=== PATIENT | female | born 1975 | race Caucasian/White ===

== ENCOUNTER 2016-04-29 22:29 | Emergency (ER) | payer OTHER ==
[2016-04-29 22:41] VITALS: BP 141/94; PULSE 76; TEMP 98.4; BMI 25.8
--- NOTE | 2016-04-30 | PDOC ---
History of Present Illness - History of Present Illness Initial Comments: 04/30/16 00:38 The patient is a 40 year old female, with no significant past medical history, who presents to the emergency department with cough, generalized body aches, and chills for about 5 days. The patient states she has had a persistent cough, productive of green sputum. The patient reports feeling "achy" and cold. She states her son is a patient in the ED tonight also, She denies chest pain, shortness of breath, headache and dizziness. She denies fever, chills, nausea, vomit, diarrhea and constipation. She denies dysuria, frequency, urgency and hematuria. Allergies: NKDA PCP - Dr. Ede Danielle <Renita Briceno - Last Filed: 04/30/16 00:38> <Paul Rich - Last Filed: 04/30/16 01:39> - General Chief Complaint: Cold Symptoms Stated Complaint: COLD SYMPTOMS Time Seen by Provider: 04/29/16 23:46 Past History <Renita Briceno - Last Filed: 04/30/16 00:38> - Past Medical History Psychiatric Problems: Yes (ANXIETY) Suicide Attempt (Hx): No (denies) - Immunization History Immunization Up to Date: (FLU 2011) - Psycho/Social/Smoking Cessation Hx Anxiety: Yes Suicidal Ideation: No Smoking Status: Yes Smoking History: Current every day smoker Have you smoked in the past 12 months: Yes Number of Cigarettes Smoked Daily: 5 Information on smoking cessation initiated: No 'Breaking Loose' booklet given: 02/15/15 Hx Alcohol Use: No Drug/Substance Use Hx: No Substance Use Type: None <Paul Rich - Last Filed: 04/30/16 01:39> - Past Medical History Allergies/Adverse Reactions: Allergies Allergy/AdvReac Type Severity Reaction Status Date / Time No Known Allergies Allergy Verified 04/29/16 22:38 Home Medications: Ambulatory Orders Oxycodone HCl/Acetaminophen [Percocet 5-325 mg Tablet] 1 - 2 tab PO Q4H Review of Systems - Review of Systems Able to Perform ROS?: Yes Comments:: 04/30/16 00:48 CONSTITUTIONAL: (+) chills. No fever, no fatigue EYES: No visual changes ENT: No ear pain, no sore throat CARDIOVASCULAR: No chest pain, no palpitations RESPIRATORY: (+) cough, No SOB GI: No abdominal pain, no nausea, no vomiting, no constipation, no diarrhea GENITOURINARY: No dysuria, no frequency, no hematuria MUSKULOSKELETAL: (+) generalized muscle aches. No backpain, no joint pain, no myalgias SKIN: No rash NEURO: No headache <Renita Briceno - Last Filed: 04/30/16 00:38> *Physical Exam - Vital Signs Last Vital Signs Temp Pulse Resp BP Pulse Ox 98.4 F 76 14 141/94 100 04/29/16 22:39 04/29/16 22:39 04/29/16 22:39 04/29/16 22:39 04/29/16 22:39 - Physical Exam Comments: 04/30/16 00:49 CONSTITUTIONAL: Well-appearing; well-nourished; in no apparent distress HEAD: Normocephalic; atraumatic EYES: PERRL; EOM intact ENMT: External appears normal; normal oropharynx NECK: Supple; non-tender; no cervical lymphadenopathy CARD: Normal S1, S2; no murmurs, rubs, or gallops RESP: Normal chest excursion with respiration; breath sounds clear and equal bilaterally; no wheezes, rhonchi, or rales ABD: Soft, non-distended; non-tender; no palpable organomegaly, no palpable hernias EXT: Normal ROM in all four extremities; non-tender to palpation; distal pulses intact SKIN: Warm, dry, no rash NEURO: No focal neurological deficiencies. <Renita Briceno - Last Filed: 04/30/16 00:38> - Vital Signs Last Vital Signs Temp Pulse Resp BP Pulse Ox 98.4 F 76 14 141/94 100 04/29/16 22:39 04/29/16 22:39 04/29/16 22:39 04/29/16 22:39 04/29/16 22:39 <Paul Rich - Last Filed: 04/30/16 01:39> Medical Decision Making - Medical Decision Making 04/30/16 01:37 Patient is a well-appearing 40-year-old female who presents with signs and symptoms of mild influenza-like illness. Patient's son was recently diagnosed with influenza. Patient is 5 days post onset of symptoms and there is no indication for Tamiflu at this time. Will discharge with instructions to aggressively hydrate and take NSAIDs as needed. <Paul Rich - Last Filed: 04/30/16 01:39> *DC/Admit/Observation/Transfer - Attestations Scribe Attestion: 04/30/16 00:49 Documentation prepared by Renita Briceno, acting as medical secretary teacher for Paul Rich MD <Renita Briceno - Last Filed: 04/30/16 00:38> - Attestations Physician Attestion: 04/30/16 01:37 The documentation was prepared by the scribe under my direct supervision. I have reviewed the documentation which correctly represents the findings, medical decision-making and critical action taken by me. <Paul Rich - Last Filed: 04/30/16 01:39> Diagnosis at time of Disposition: Influenza-like illness - Discharge Dispostion Disposition: HOME Condition at time of disposition: Stable - Referrals Referrals: Ede Danielle [Primary Care Provider] - - Patient Instructions Printed Discharge Instructions: DI for Influenza -- Adult
== END 2016-04-30 02:00 | disposition home or self-care (01) ==
LOC: JER 22:29
DX: J11.1 Influenza due to unidentified influenza virus with other respiratory manifestations (principal); F41.9 Anxiety disorder, unspecified; F17.210 Nicotine dependence, cigarettes, uncomplicated
CPT/HCPCS: 99281-25

== ENCOUNTER 2016-07-01 02:11 | Emergency (ER) | payer OTHER ==
[2016-07-01 02:27] VITALS: BMI 27.3
[2016-07-01] MEDS ORDERED: ONDANSETRON 4 MG/2 ML VIAL IVPB ONE (02:36)
[2016-07-01] MEDS ORDERED: SODIUM CHLORIDE 1,000 ML IV STA ×2 (02:36→04:36)
[2016-07-01] MEDS ORDERED: morphine CARPU-JECT 4 MG/1 ML DISP.SYRIN IVPUSH ONE ×2 (02:36→04:36)
--- NOTE | 2016-07-01 02:42 | PDOC ---
History of Present Illness - General Chief Complaint: Pain, Acute Stated Complaint: STOMACH PAIN Time Seen by Provider: 07/01/16 02:13 History Source: Patient Exam Limitations: No Limitations - History of Present Illness Travel History: No Initial Comments: 07/01/16 02:39 40yo Female patient presents to ED c/o sudden onset abd pain. Patient reports pain began couple hours ago. [place] RLQ radiating to her right flank. Denies hematuria. Patient report hx: Constipation. Last Bm: 2 days ago. Last meal: 30 mins. LNMP: June 23. Associated SOB per patient. Denies CP, fever, rectal bleeding, hematuria, hematemesis, or any other complaints at this time. Timing/Duration: reports: getting worse, changing over time Quality: reports: moderate Abdominal Pain Onset Location: reports: RLQ, epigastric Pain Radiation: reports: back Activities at Onset: reports: none Treatment Prior to Arrive: worse with: analgesics, antacids, cold pack, heat, laxative, enema, other Aggravating Factors: worse with: None, Defecation, Eating, Emotional upset, Exertion, [place], Movement, Voiding, Change in position Alleviating Factors: worse with: None, Belching, Shallow Breathing, Defecation, Eating, Holding Breath, Passing Gas, Change in Position, Rest, Voiding, Vomiting Past History - Travel Traveled outside of the country in the last 30 days: No Close contact w/someone who was outside of country & ill: No - Past Medical History Allergies/Adverse Reactions: Allergies Allergy/AdvReac Type Severity Reaction Status Date / Time No Known Allergies Allergy Verified 04/29/16 22:38 Home Medications: Ambulatory Orders Ondansetron [Zofran Odt -] 4 mg SL Q6H PRN #20 od.tablet 07/01/16 Psychiatric Problems: Yes (ANXIETY) Suicide Attempt (Hx): No (denies) - Immunization History Immunization Up to Date: (2011) - Psycho/Social/Smoking Cessation Hx Anxiety: Yes Suicidal Ideation: No Smoking Status: Yes Smoking History: Never smoked Have you smoked in the past 12 months: Yes Number of Cigarettes Smoked Daily: 5 Information on smoking cessation initiated: Yes 'Breaking Loose' booklet given: 07/01/16 Hx Alcohol Use: No Drug/Substance Use Hx: No Substance Use Type: None Abd/GI Specific PMHX - Complaint Specific PMHX Colitis: No Diverticulitis: No Gall Bladder Disease: No GERD: No Hepatitis: No Irritable Bowel Synd (IBS): No Pancreatitis: No GI Ulcer Disease: No Review of Systems - Review of Systems Able to Perform ROS?: Yes Is the patient limited Welsh proficient: No Constitutional: No: Chills, Fever Respiratory: No: Stridor, Wheezing Cardiac (ROS): No: Chest Pain ABD/GI: Yes: Constipated. No: Diarrhea, Nausea, Poor Appetite, Poor Fluid Intake, Rectal Bleeding, Vomiting, Indigestion, Abdominal cramping : Yes: Flank Pain. No: Burning, Dysuria, Frequency, Hematuria, Incontinence, Pain, Urgency Musculoskeletal: Yes: Back Pain Integumentary: No: Bruising, Erythema, Rash, Sweating Neurological: No: Headache, Paresthesia, Seizure, Tingling, Tremors, Weakness, Unsteady Gait, Ataxia, Dizziness All Other Systems: Reviewed and Negative *Physical Exam - Vital Signs Last Vital Signs Temp Pulse Resp BP Pulse Ox 98.1 F 82 18 159/92 100 07/01/16 02:25 07/01/16 02:25 07/01/16 02:25 07/01/16 02:25 07/01/16 02:25 - Physical Exam General Appearance: Yes: Nourished, Appropriately Dressed, Mild Distress. No: Apparent Distress, Moderate Distress, Severe Distress Neck: positive: Trachea midline, Supple. negative: Rigid, Stridor, Lymphadenopathy (R), Lymphadenopathy (L) Respiratory/Chest: positive: Lungs Clear, Normal Breath Sounds. negative: Respiratory Distress, Accessory Muscle Use, Labored Respiration, Rapid RR Cardiovascular: positive: Regular Rhythm, Regular Rate. negative: S1, S2, Edema , JVD, Murmur Gastrointestinal/Abdominal: positive: Normal Bowel Sounds, Soft, Tenderness (RLQ -Epigastric). 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 PLAN: CT ABD. *DC/Admit/Observation/Transfer Diagnosis at time of Disposition: Abdominal pain Qualifiers: Abdominal location: right lower quadrant Qualified Code(s): R10.31 - Right lower quadrant pain - Discharge Dispostion Disposition: HOME Condition at time of disposition: Improved Admit: No - Prescriptions Prescriptions: Ondansetron [Zofran Odt -] 4 mg SL Q6H PRN #20 od.tablet PRN Reason: Nausea - Referrals Referrals: Ede Danielle [Primary Care Provider] - Chaitanya Cardoza MD [Staff Physician] - - Patient Instructions Printed Discharge Instructions: DI for Abdominal Pain-Adult Additional Instructions: FOLLOW UP WITH DR. CARDOZA (GASTROENTEROLOGY). CALL TO SCHEDULE APPOINTMENT. AVOID ALCOHOL, SPICY FOODS, GREASY FOOD AT THIS TIME. RETURN IF SYMPTOMS WORSEN OR ANY CONCERNS FOR FURTHER EVALUATION. TAKE MEDICATIONS PRESCRIBED. ALSO, FOLLOW UP WITH YOUR PRIMARY CARE PROVIDER. Print Language: MEXICAN - Post Discharge Activity Work/School Note: Back to Work
[2016-07-01] MEDS ORDERED: morphine CARPU-JECT 4 MG/1 ML DISP.SYRIN ONE ×2 (02:47→04:57)
[2016-07-01] MEDS ORDERED: ONDANSETRON 4 MG/2 ML VIAL ONE (02:47)
[2016-07-01 03:12] LABS: BASOPHIL 0.5 % (0-2.0); EOSINOPHIL 2.7 % (0-4.5); MCH 25.9 pg (25.7-33.7); MCHC 32.1 g/dl (32.0-36.0); MEAN CELL VOLUME 80.5 fl (80-96); NEUTROPHILS 58.9 % (42.8-82.8); PLATELET COUNT 316 K/MM3 (134-434); RDW 13.2 % (11.6-15.6); WHITE BLOOD COUNT 8.2 K/mm3 (4.0-10.0)
[2016-07-01 03:14] LABS: URINE APPEARANCE CLEAR; URINE BILIRUBIN NEGATIVE (NEGATIVE); URINE BLOOD NEGATIVE (NEGATIVE); URINE COLOR STRAW; URINE GLUCOSE (UA) NEGATIVE (NEGATIVE); URINE KETONE NEGATIVE (NEGATIVE); URINE LEUK ESTERASE NEGATIVE (NEGATIVE); URINE NITRITE NEGATIVE (NEGATIVE); URINE PROTEIN NEGATIVE (NEGATIVE); URINE UROBILINOGEN NEGATIVE E.U./dl (0.2-1.0)
[2016-07-01 03:34] LABS: ALBUMIN 3.8 g/dl (3.4-5.0); ALK PHOS 79 U/L (45-117); AMYLASE 54 U/L (25-115); ANION GAP 5 (8-16); BILIRUBIN,TOTAL 0.3 mg/dL (0.2-1.0); CALCIUM 8.5 mg/dL (8.5-10.1); CO2 34 mmol/L (21-32); CREATININE 0.7 mg/dL (0.55-1.02); GLUCOSE,RANDOM 100 mg/dL (74-106); SGOT/AST 9 U/L (15-37); SGPT/ALT 15 U/L (12-78); TOT PROT 6.6 g/dl (6.4-8.2)
[2016-07-01 03:38] LABS: BILIRUBIN,DIRECT < 0.1 mg/dL (0.0-0.2)
--- NOTE | 2016-07-01 05:37 | PDOC ---
*Physical Exam - Vital Signs Last Vital Signs Temp Pulse Resp BP Pulse Ox 98.1 F 82 18 159/92 100 07/01/16 02:25 07/01/16 02:25 07/01/16 02:25 07/01/16 02:25 07/01/16 02:25 ED Treatment Course - LABORATORY CBC & Chemistry Diagram: 07/01/16 03:00 07/01/16 03:00 - ADDITIONAL ORDERS Additional order review: Laboratory Results 07/01/16 07/01/16 03:00 03:00 Sodium 141 Potassium 3.7 Chloride 102 Carbon Dioxide 34 H Anion Gap 5 L BUN 10 D Creatinine 0.7 Random Glucose 100 Calcium 8.5 Total Bilirubin 0.3 D Direct Bilirubin < 0.1 AST 9 L D ALT 15 D Alkaline Phosphatase 79 Total Protein 6.6 Albumin 3.8 Total Amylase 54 Lipase 100 Urine Color Straw Urine Appearance Clear Urine pH 7.0 Ur Specific [employer] 1.016 Urine Protein Negative Urine Glucose (UA) Negative Urine Ketones Negative Urine Blood Negative Urine Nitrite Negative Urine Bilirubin Negative Urine Urobilinogen Negative Ur Leukocyte Esterase Negative Urine HCG, Qual Negative 07/01/16 03:00 RBC 4.21 MCV 80.5 MCHC 32.1 RDW 13.2 MPV 7.0 L Neutrophils % 58.9 Lymphocytes % 31.9 Monocytes % 6.0 Eosinophils % 2.7 Basophils % 0.5 - Medications Given in the ED: ED Medications Discontinued Medications Generic Name Dose Route Start Last Admin Trade Name Freq PRN Reason Stop Dose Admin Sodium Chloride 1,000 mls @ 1,000 mls/hr 07/01/16 02:36 07/01/16 02:54 Normal Saline - IV 07/01/16 03:35 1,000 mls/hr ASDIR STA Administration Sodium Chloride 1,000 mls @ 1,000 mls/hr 07/01/16 04:36 07/01/16 04:56 Normal Saline - IV 07/01/16 05:35 1,000 mls/hr ASDIR STA Administration Morphine Sulfate 4 mg 07/01/16 02:36 07/01/16 02:54 Morphine Injection - IVPUSH 07/01/16 02:37 4 mg ONCE ONE Administration Morphine Sulfate 4 mg 07/01/16 04:36 07/01/16 04:56 Morphine Injection - IVPUSH 07/01/16 04:37 4 mg ONCE ONE Administration Ondansetron HCl 4 mg 07/01/16 02:36 07/01/16 02:54 Zofran Injection IVPB 07/01/16 02:37 4 mg ONCE ONE Administration Medical Decision Making - Medical Decision Making 07/01/16 05:37 agree with care from SUPERVISOR ASSEMBLY ROOM Dontae *DC/Admit/Observation/Transfer Diagnosis at time of Disposition: Abdominal pain - Discharge Dispostion Disposition: HOME Condition at time of disposition: Improved - Prescriptions Prescriptions: Ondansetron [Zofran Odt -] 4 mg SL Q6H PRN #20 od.tablet PRN Reason: Nausea - Referrals Referrals: Ede Danielle [Primary Care Provider] - Chaitanya Cardoza MD [Staff Physician] - - Patient Instructions Printed Discharge Instructions: DI for Abdominal Pain-Adult Additional Instructions: FOLLOW UP WITH DR. CARDOZA (GASTROENTEROLOGY). CALL TO SCHEDULE APPOINTMENT. AVOID ALCOHOL, SPICY FOODS, GREASY FOOD AT THIS TIME. RETURN IF SYMPTOMS WORSEN OR ANY CONCERNS FOR FURTHER EVALUATION. TAKE MEDICATIONS PRESCRIBED. ALSO, FOLLOW UP WITH YOUR PRIMARY CARE PROVIDER. Print Language: SINHAL[place] - Post Discharge Activity Work/School Note: Back to Work
[2016-07-01 07:24] VITALS: BP 140/80; PULSE 80; TEMP 98
== END 2016-07-01 07:26 | disposition home or self-care (01) ==
LOC: JER 02:11
PROC: 3E033NZ Introduction of Analgesics, Hypnotics, Sedatives into Peripheral Vein, Percutaneous Approach (ICD-10-PCS; principal; 2016-07-01)
PROC: 3E033GC Introduction of Other Therapeutic Substance into Peripheral Vein, Percutaneous Approach (ICD-10-PCS; 2016-07-01)
DX: R10.31 Right lower quadrant pain (principal); F41.9 Anxiety disorder, unspecified
CPT/HCPCS: 36415; 74177-TC; 80048; 80076; 81003; 82150; 83690; 84703; 85025; 99282-25

== ENCOUNTER 2016-07-29 22:57 | Emergency (ER) | payer OTHER ==
[2016-07-29 23:14] VITALS: BP 114/76; PULSE 80; TEMP 98.6; BMI 27.3
--- NOTE | 2016-07-30 00:30 | PDOC ---
[id number]: SHORTNESS OF BREATH Time Seen by Provider: 07/30/16 00:03 History Source: Patient - History of Present Illness Initial Comments: 07/30/16 00:25 40 year old female c/o numbness and tingling to face and shortness of breath similar to previous anxiety attacks. patient reports that her symptoms have now resolved. patient denies SI or HI reports feeling stressed. Past History - Past Medical History Allergies/Adverse Reactions: Allergies Allergy/AdvReac Type Severity Reaction Status Date / Time No Known Allergies Allergy Verified 04/29/16 22:38 Home Medications: Ambulatory Orders Ondansetron [Zofran Odt -] 4 mg SL Q6H PRN #20 od.tablet 07/01/16 Psychiatric Problems: Yes (ANXIETY) Suicide Attempt (Hx): No (denies) - Immunization History Immunization Up to Date: (2011) - Psycho/Social/Smoking Cessation Hx Anxiety: Yes Suicidal Ideation: No Smoking Status: Yes Smoking History: Current every day smoker Have you smoked in the past 12 months: Yes Number of Cigarettes Smoked Daily: 5 Information on smoking cessation initiated: No 'Breaking Loose' booklet given: 07/01/16 Hx Alcohol Use: No Drug/Substance Use Hx: No Substance Use Type: None Review of Systems - Review of Systems Able to Perform ROS?: Yes Is the patient limited Welsh proficient: No Constitutional: No: Symptoms Reported, See HPI, Chills, Diaphoresis, Fever, Loss of Appetite, Malaise, Night Sweats, Weakness, Weight Stable, Unintentional Wgt. Loss, Unexplained wgt Loss, Other Neurological: No: Symptoms reported, See HPI, Headache, Numbness, Paresthesia, Pre-Existing Deficit, Seizure, Tingling, Tremors, Weakness, Unsteady Gait, Ataxia, Dizziness, Other Psychiatric: Yes: Anxiety, Stressors, Sleep Pattern Change, Other ("feeling sad " no SI or HI) *Physical Exam - Vital Signs Last Vital Signs Temp Pulse Resp BP Pulse Ox 98.6 F 80 18 114/76 97 07/29/16 23:13 07/29/16 23:13 07/29/16 23:13 07/29/16 23:13 07/29/16 23:13 - Physical Exam General Appearance: Yes: Appropriately Dressed Respiratory/Chest: positive: Lungs Clear, Normal Breath Sounds Cardiovascular: positive: Regular Rhythm, Regular Rate Gastrointestinal/Abdominal: positive: Normal Bowel Sounds, Soft Musculoskeletal: positive: Normal Inspection Extremity: positive: Normal Capillary Refill, Normal Inspection, Normal Range of Motion Integumentary: positive: Normal Color, Dry, Warm Neurologic: positive: 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 will d/c for outpatient psychiatric evaluation. *DC/Admit/Observation/Transfer Diagnosis at time of Disposition: Anxiety - Discharge Dispostion Disposition: HOME - Referrals Referrals: Rosalba Ames MD [Staff Physician] - - Patient Instructions Printed Discharge Instructions: DI for Anxiety -- Adult Additional Instructions: follow up with your doctor as soon as possible. return to the ER if symptoms worsen.
== END 2016-07-30 00:39 | disposition home or self-care (01) ==
LOC: JER 22:57
DX: F41.9 Anxiety disorder, unspecified (principal); F17.210 Nicotine dependence, cigarettes, uncomplicated
CPT/HCPCS: 99282-25

== ENCOUNTER 2016-12-05 02:41 | Emergency (ER) | payer OTHER ==
--- NOTE | 2016-12-05 02:50 | PDOC ---
Attending Attestation - Resident Resident Name: Fatuma Alfonso - HPI HPI: 12/05/16 02:50 Pt comes with anxiety crying and chest pain - Physicial Exam PE: 12/05/16 03:59 chest clear; lungs clear; heart NSR; abd soft NTND; flank no pain, Ext: no swelling. Pt feels fatgiued and depressed; she is not suicidal. Afebrile. Pt appears well. - Medical Decision Making 12/05/16 04:00 Pt will be asked to follow with Dr Ames; PMD Lolis can follow with her; Pt can get her thyroid checked with PMD.
[2016-12-05 02:58] VITALS: BMI 29.6
--- NOTE | 2016-12-05 03:04 | PDOC ---
History of Present Illness - General Stated Complaint: DIFFICUTLY BREATHING Time Seen by Provider: 12/05/16 02:48 History Source: Patient Exam Limitations: No Limitations - History of Present Illness Initial Comments: This is a 41 yo female with h/o depression and anxiety who presents c/o shortness of breath. She explains that she has been going through difficult times with her boyfriend and this has been worsening her depression. 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 She now has mild left-sided chest discomfort as well. She has been crying tonight because of her relationship problems. She denies any suicidal or homicidal thoughts. She does not currently work, she has two teenage children, and she occasionally drinks and also smokes 1/2 PPD. Past History - Past Medical History Allergies/Adverse Reactions: Allergies Allergy/AdvReac Type Severity Reaction Status Date / Time No Known Allergies Allergy Verified 12/05/16 02:52 Home Medications: Ambulatory Orders Ondansetron [Zofran Odt -] 4 mg SL Q6H PRN #20 od.tablet 07/01/16 Psychiatric Problems: Yes (Anxiety) Suicide Attempt (Hx): No (denies) - Immunization History Immunization Up to Date: (2011) - Psycho/Social/Smoking Cessation Hx Anxiety: Yes Suicidal Ideation: No Smoking Status: Yes Smoking History: Current every day smoker Have you smoked in the past 12 months: Yes Number of Cigarettes Smoked Daily: 10 Information on smoking cessation initiated: No 'Breaking Loose' booklet given: 07/01/16 Hx Alcohol Use: No Drug/Substance Use Hx: No Substance Use Type: None Review of Systems - Review of Systems Constitutional: No: Chills, Fever, Unexplained wgt Loss HEENTM: No: Nose Congestion, Throat Pain Respiratory: Yes: Shortness of Breath. No: Cough Cardiac (ROS): Yes: Chest Pain. No: Palpitations ABD/GI: No: Constipated, Diarrhea, Nausea, Vomiting : No: Burning, Dysuria Musculoskeletal: Yes: Back Pain, Neck Pain Integumentary: No: Bruising, Rash Neurological: No: Headache, Numbness, Tingling, Weakness, Dizziness Psychiatric: Yes: Anxiety, Depression, Frequent Crying, Stressors Endocrine: No: Unexplained Weight Gain, Unexplained Weight Loss *Physical Exam - Vital Signs Last Vital Signs Temp Pulse Resp BP Pulse Ox 98.6 F 69 20 160/107 98 12/05/16 02:53 12/05/16 02:53 12/05/16 02:53 12/05/16 02:53 12/05/16 02:53 - Physical Exam General Appearance: Yes: Nourished, Appropriately Dressed, Mild Distress, Other (appears depressed, somber, but does converse and answers questions appropriately) HEENT: positive: EOMI, Normal Voice, Hearing Grossly Normal, Other (bilateral scleral injection and mild periorbital edema). negative: Scleral Icterus (R), Scleral Icterus (L), Nasal Congestion Neck: positive: Trachea midline, Supple. negative: Tender, Rigid, Tender midline Respiratory/Chest: positive: Lungs Clear, Normal Breath Sounds. negative: Respiratory Distress, Accessory Muscle Use, Labored Respiration, Crackles, Rhonchi, Stridor, Wheezing Cardiovascular: positive: Regular Rhythm, Regular Rate. negative: Edema, Murmur Gastrointestinal/Abdominal: positive: Normal Bowel Sounds, Soft. negative: Tender, Organomegaly, Pulsatile Mass, Guarding Musculoskeletal: positive: Normal Inspection. negative: Decreased Range of Motion, Vertebral Tenderness Extremity: positive: Normal Capillary Refill, Normal Inspection, Normal Range of Motion. negative: Tender, Cyanosis Integumentary: positive: Normal Color, Dry, Warm. negative: Erythema, Rash, Bruising Neurologic: positive: sports lawyer II-XII NML intact (grossly), Fully Oriented, Alert, Normal Mood/Affect, Normal Response, Motor Strength 5/5, Depressed Affect Heart Score/ECG Review #1 ECG reviewed & interpreted by me at: 03:49 NSR, rate of 66, with normal axis and intervals, no signs of ischemia. ED Treatment Course - RADIOLOGY Radiograph Interpretation: CXR without e/o acute cardiopulmonary processes Medical Decision Making - Medical Decision Making 41 yo female with h/o depression and anxiety who presents with SOB. She notes that this feels like her typical anxiety attack, and notes having been more depressed lately. She has mild left sided chest discomfort which is also typical of her anxiety attacks. Ordered is a CXR and EKG. EKG is unremarkable. CXR without e/o acute cardiopulmonary processes. The patient's significant other arrives to the ED and seems supportive. She is discharged home with instructions to follow up with psychiatry and her PCP. *DC/Admit/Observation/Transfer Diagnosis at time of Disposition: Shortness of breath, Anxiety and depression - Discharge Dispostion Disposition: HOME Condition at time of disposition: Stable Admit: No - Referrals Referrals: Ede Danielle [Primary Care Provider] - - Patient Instructions Printed Discharge Instructions: DI for Shortness of Breath Additional Instructions: You were seen in the emergency department tonight for shortness of breath. We did an electrocardiogram to check your heart, which was normal. We also did a chest x-ray which was normal as well. Please follow up with psychiatrist Dr. Ames at [phone], OR Dr. Cruz at [phone] and asking for an appointment. Tell them that you were seen in the emergency department for shortness of breath, depression, and anxiety. Please also follow up with Dr. Danielle and ask to have your thyroid levels checked because of your fatigue. You can always come back to the emergency department for any new or worsening symptoms. - Attestations Physician Attestion: 12/05/16 04:02 I, Dr. Fatuma Alfonso, attest that this document has been prepared under my direction and personally reviewed by me in its entirety. I further attest, that it accurately reflects all work, treatment, procedures and medical decision -making performed by me.
[2016-12-05 04:03] VITALS: BP 131/80; PULSE 83; TEMP 98.3
[2016-12-05] MEDS ORDERED: LORazepam 1 MG TABLET PO ONE (04:21)
[2016-12-05] MEDS ORDERED: LORazepam 0.5 MG TABLET PO ONE (04:45)
[2016-12-05] MEDS ORDERED: LORazepam 0.5 MG TABLET ONE (04:57)
--- NOTE | 2016-12-05 13:22 | EKG ---
Test Reason : Blood Pressure : / mmHG Vent. Rate : 066 BPM Atrial Rate : 066 BPM P-R Int : 162 ms QRS Dur : 078 ms QT Int : 376 ms P-R-T Axes : 037 015 041 degrees QTc Int : 394 ms NORMAL SINUS RHYTHM SEPTAL INFARCT , AGE UNDETERMINED ABNORMAL ECG WHEN COMPARED WITH ECG OF 01-MAY-2014 02:53, NO SIGNIFICANT CHANGE WAS FOUND Confirmed by HUBER HERNADEZ MD ([id number]) on 12/05/2016 1:22:12 PM Referred By: Confirmed By:HUBER HERNADEZ MD
== END 2016-12-05 04:03 | disposition home or self-care (01) ==
LOC: JER 02:41
DX: F41.8 Other specified anxiety disorders (principal); R06.02 Shortness of breath; F17.210 Nicotine dependence, cigarettes, uncomplicated
CPT/HCPCS: 71020-TC; 84703; 93005; 93010; 99281-25

== ENCOUNTER 2017-02-08 22:15 | Emergency (ER) | payer OTHER ==
[2017-02-08 22:35] VITALS: BP 146/94; PULSE 77; TEMP 98.1; BMI 28.2
== END 2017-02-08 23:54 | disposition left against medical advice (07) ==
LOC: JER 22:15
DX: Z53.21 Procedure and treatment not carried out due to patient leaving prior to being seen by health care provider (principal)
CPT/HCPCS: 99281-25

== ENCOUNTER 2017-02-09 00:06 | Emergency (ER) | payer OTHER ==
--- NOTE | 2017-02-09 00:51 | PDOC ---
History of Present Illness - General History Source: Patient Exam Limitations: No Limitations - History of Present Illness Initial Comments: 02/09/17 01:07 The patient is a 41 year old female, with no significant past medical history who presents to the emergency department with palpitations for the past week. Patient reports intermittent chest palpitations at rest however worse upon exertion. Patient also reports associated SOB and chest pain that resolves on its own. Patient reports family hx of cardiac disease. Patient denies any oral contraceptives, recent travel. She denies headache or dizziness. She denies fever, chills, abdominal pain, nausea, vomit, diarrhea or constipation. She denies dysuria, frequency, urgency or hematuria. Patient denies sick contacts. Allergies: NKA Past surgical history: None Social history: some day smoker PCP: Dr Ede Danielle <Amie Bustillo - Last Filed: 02/09/17 01:47> - General History Source: Patient <Dariel Toth - Last Filed: 02/09/17 02:02> - General Chief Complaint: Palpitations Stated Complaint: SOB Time Seen by Provider: 02/09/17 00:47 Past History <Amie Bustillo - Last Filed: 02/09/17 01:47> - Past Medical History Psychiatric Problems: Yes (Anxiety) - Immunization History Immunization Up to Date: (FLU 2011) - Suicide/Smoking/Psychosocial Hx Smoking Status: Yes Smoking History: Never smoked Have you smoked in the past 12 months: No Number of Cigarettes Smoked Daily: 3 Information on smoking cessation initiated: No 'Breaking Loose' booklet given: 07/01/16 Hx Alcohol Use: No Drug/Substance Use Hx: No Substance Use Type: None <Dariel Toth - Last Filed: 02/09/17 02:02> - Past Medical History Allergies/Adverse Reactions: Allergies Allergy/AdvReac Type Severity Reaction Status Date / Time No Known Allergies Allergy Verified 02/09/17 00:48 Home Medications: Ambulatory Orders Ondansetron [Zofran Odt -] 4 mg SL Q6H PRN #20 od.tablet 07/01/16 Review of Systems - Review of Systems Able to Perform ROS?: Yes Comments:: 02/09/17 01:07 CONSTITUTIONAL: Absent: fever, chills, diaphoresis, generalized weakness, malaise, loss of appetite HEENT: Absent: rhinorrhea, nasal congestion, throat pain, throat swelling, difficulty swallowing, mouth swelling, ear pain, eye pain, visual Changes CARDIOVASCULAR: +chest pain. +palpitations. Absent: syncope, irregular heart rate, lightheadedness, peripheral edema RESPIRATORY: +SOB Absent: cough, dyspnea with exertion, orthopnea, wheezing, stridor, hemoptysis GASTROINTESTINAL: Absent: abdominal pain, abdominal distension, nausea, vomiting, diarrhea, constipation, melena, hematochezia GENITOURINARY: Absent: dysuria, frequency, urgency, hesitancy, hematuria, flank pain, genital pain MUSCULOSKELETAL: Absent: myalgia, arthralgia, joint swelling SKIN: Absent: rash, itching, pallor HEMATOLOGIC/IMMUNOLOGIC: Absent: easy bleeding, easy bruising, lymphadenopathy, frequent infections ENDOCRINE: Absent: unexplained weight gain, unexplained weight loss, heat intolerance, cold intolerance NEUROLOGIC: Absent: headache, focal weakness or paresthesias, dizziness, unsteady gait, seizure, mental status changes, bladder or bowel incontinence PSYCHIATRIC: Absent: anxiety, depression, suicidal or homicidal ideation, hallucinations. <Amie Bustillo - Last Filed: 02/09/17 01:47> *Physical Exam - Vital Signs Last Vital Signs Temp Pulse Resp BP Pulse Ox 98.4 F 74 14 143/89 100 02/09/17 00:48 02/09/17 00:48 02/09/17 00:48 02/09/17 00:48 02/09/17 00:48 - Physical Exam Comments: 02/09/17 01:07 GENERAL: Well developed, well nourished. Awake and alert. In no acute distress. HEENT: Normocephalic, atraumatic. PERRLA, EOMI. No conjunctival pallor. Sclerae are non -icteric. Moist mucous membranes. Oropharynx is clear. NECK: Supple. Full ROM. No JVD. Carotid pulses 2+ and symmetric, without bruits. No thyromegaly. No lymphadenopathy. CARDIOVASCULAR: Regular rate and rhythm. No murmurs, rubs, or gallops. Distal pulses are 2+ and symmetric. PULMONARY: No evidence of respiratory distress. Lungs clear to auscultation bilaterally. No wheezing, rales or rhonchi. ABDOMINAL: Soft. Non-tender. Non-distended. No rebound or guarding. No organomegaly. Normoactive bowel sounds. MUSCULOSKELETAL Normal range of motion at all joints. No bony deformities or tenderness. No CVA tenderness. EXTREMITIES: No cyanosis. No clubbing. No edema. No calf tenderness. SKIN: Warm and dry. Normal capillary refill. No rashes. No jaundice. NEUROLOGICAL: Alert, awake, appropriate. Cranial nerves 2-12 intact. No deficits to light touch and temperature in face, upper extremities and lower extremities. No motor deficits in the in face, upper extremities and lower extremities. Normoreflexic in the upper and lower extremities. Normal speech. Toes are downgoing bilaterally. Gait is normal without ataxia. PSYCHIATRIC: Cooperative. Good eye contact. Appropriate mood and affect. <Amie Bustillo - Last Filed: 02/09/17 01:47> - Vital Signs Last Vital Signs Temp Pulse Resp BP Pulse Ox 98.4 F 74 14 143/89 100 02/09/17 00:48 02/09/17 00:48 02/09/17 00:48 02/09/17 00:48 02/09/17 00:48 <Dariel Toth - Last Filed: 02/09/17 02:02> ED Treatment Course - LABORATORY CBC & Chemistry Diagram: 02/09/17 01:12 02/09/17 01:12 <Amie Bustillo - Last Filed: 02/09/17 01:47> - LABORATORY CBC & Chemistry Diagram: 02/09/17 01:12 02/09/17 01:12 <Dariel Toth - Last Filed: 02/09/17 02:02> Medical Decision Making - Medical Decision Making 02/09/17 02:01 Dr. Toth: The scribe's documentation has been prepared under my direction and personally reviewed by me in its entirery. I confirm that the note above accurately reflects all work, treatment, procedures, and medical decision making performed by me. <Dariel Toth - Last Filed: 02/09/17 02:02> *DC/Admit/Observation/Transfer - Attestations Scribe Attestion: 02/09/17 01:07 Documentation prepared by Amie Bustillo, acting as medical scientist for Dariel Toth DO. <Amie Bustillo - Last Filed: 02/09/17 01:47> - Discharge Dispostion Admit: No <Dariel Toth - Last Filed: 02/09/17 02:02> Diagnosis at time of Disposition: Palpitations - Discharge Dispostion Disposition: HOME Condition at time of disposition: Stable - Referrals Referrals: Ede Danielle [Primary Care Provider] - Nikhil Tamayo MD [Staff Physician] - - Patient Instructions Printed Discharge Instructions: DI for Palpitations Additional Instructions: Please follow up with the old coin dealer for further evaluation of symptoms Print Language: THAI
[2017-02-09 01:02] VITALS: BP 143/89; PULSE 74; TEMP 98.4; BMI 27.3
[2017-02-09 01:23] LABS: BASOPHIL 0.8 % (0-2.0); MCH 26.1 pg (25.7-33.7); MCHC 32.8 g/dl (32.0-36.0); MEAN CELL VOLUME 79.8 fl (80-96); MEAN PLT VOLUME 7.1 fl (7.5-11.1); PLATELET COUNT 343 K/MM3 (134-434); RDW 14.6 % (11.6-15.6); WHITE BLOOD COUNT 7.2 K/mm3 (4.0-10.0)
[2017-02-09 01:47] LABS: ALBUMIN 3.8 g/dl (3.4-5.0); ANION GAP 8 (8-16); BILIRUBIN,TOTAL 0.1 mg/dL (0.2-1.0); CALCIUM 8.1 mg/dL (8.5-10.1); CO2 30 mmol/L (21-32); CREATININE 0.6 mg/dL (0.55-1.02); GLUCOSE,RANDOM 70 mg/dL (74-106); SGOT/AST 9 U/L (15-37); SGPT/ALT 23 U/L (12-78); TOT PROT 6.9 g/dl (6.4-8.2)
[2017-02-09 01:50] LABS: ALK PHOS 96 U/L (45-117); CPK 80 IU/L (26-192); TROPONIN I < 0.02 ng/ml (0.00-0.05)
--- NOTE | 2017-02-09 11:48 | EKG ---
Test Reason : Blood Pressure : / mmHG Vent. Rate : 063 BPM Atrial Rate : 063 BPM P-R Int : 166 ms QRS Dur : 070 ms QT Int : 386 ms P-R-T Axes : 032 018 038 degrees QTc Int : 395 ms NORMAL SINUS RHYTHM SEPTAL INFARCT (CITED ON OR BEFORE 10-APR-2010) ABNORMAL ECG WHEN COMPARED WITH ECG OF 05-DEC-2016 03:49, NO SIGNIFICANT CHANGE WAS FOUND Confirmed by ANNITA SARABIA, ARMEN ([id number]) on 02/09/2017 11:47:58 AM Referred By: Confirmed By:ARMEN ARIZA MD
== END 2017-02-09 02:16 | disposition home or self-care (01) ==
LOC: JER 00:06
DX: R00.2 Palpitations (principal)
CPT/HCPCS: 36415; 80053; 82550; 83735; 84484; 84703; 85025; 93005; 93010; 99284-25

== ENCOUNTER 2017-02-18 04:38 | Emergency (ER) | payer OTHER ==
[2017-02-18] MEDS ORDERED: SODIUM CHLORIDE 0.9% 1000 ML INFUS.BAG IV ONE (05:02)
--- NOTE | 2017-02-18 05:09 | PDOC ---
History of Present Illness - General Stated Complaint: WEAKNESS Time Seen by Provider: 02/18/17 04:51 - History of Present Illness Initial Comments: 02/18/17 05:03 Patient is a 41 y.o. female with a PMH of Anxiety who presents today c/o acute onset of weakness patient notes she was walking around her house when she suddenly felt weak and laid down. Patient denies any associated lightheadedness , vertigo, chest pain but does endorse shortness of breath as well as B/L LE tingling. Patient's @ bedside notes he took patient's blood pressure @ home and it was low (does not provide exact figure) and also notes patient has had decreased PO intake today. Past History - Past Medical History Allergies/Adverse Reactions: Allergies Allergy/AdvReac Type Severity Reaction Status Date / Time No Known Allergies Allergy Verified 02/18/17 05:25 Home Medications: Ambulatory Orders NK [No Known Home Medication] 02/18/17 Anemia: No Asthma: No Cancer: No Cardiac Disorders: No CVA: No COPD: No DVT: No Dementia: No Diabetes: No Dialysis: No GI Disorders: No Disorders: No HTN: No Hypercholesterolemia: No Kidney Stones: No Liver Disease: No Psychiatric Problems: Yes (Anxiety) Seizures: No Thyroid Disease: No Lung CA: No - Immunization History Immunization Up to Date: (2011) - Suicide/Smoking/Psychosocial Hx Smoking Status: Yes Smoking History: Never smoked Have you smoked in the past 12 months: Yes Number of Cigarettes Smoked Daily: 3 'Breaking Loose' booklet given: 07/01/16 Hx Alcohol Use: No Drug/Substance Use Hx: No Substance Use Type: None Review of Systems - Review of Systems Constitutional: No: Chills, Fever Respiratory: Yes: Shortness of Breath Cardiac (ROS): No: Chest Pain ABD/GI: No: Constipated, Diarrhea, Nausea, Vomiting : No: Burning, Dysuria Psychiatric: Yes: Anxiety All Other Systems: Reviewed and Negative *Physical Exam - Physical Exam General Appearance: Yes: Nourished HEENT: positive: KAYE, Normal ENT Inspection Respiratory/Chest: positive: Lungs Clear Cardiovascular: positive: S1, S2 Gastrointestinal/Abdominal: positive: Normal Bowel Sounds, Soft. 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 female who presents with weakness and some associated tingling. On PE patient is alert, however has a flat affect. Clinical suspicion for CVA is low given patient's age and lack of risk factors. Initial DDx includes electrolyte abnormalities vs. anemia vs. auto-immune (will consider as diagnosis of exclusion) including hypothyroidism vs. psychosomatic anxiety. Patient low risk for PE (Wells 1.5) PLAN: 1. CBC, CMP 2. UA 3. TSH 4. EKG 5. 1 L IV NS Reassess 02/18/17 06:24 CBC shows no anemia. EKG shows Sinus Rhythm HR 103 BPM, with normal intervals, and poor R wave progression V4-V6 and no T wave flattening and no ST elevations/ depressions the latter indicating acute ischemic change. 02/18/17 07:11 Patient signed out to Dr. Baeza (Resident) and Dr. Mchugh (Attending) *DC/Admit/Observation/Transfer Diagnosis at time of Disposition: Weakness - Discharge Dispostion Condition at time of disposition: Stable
[2017-02-18 05:25] VITALS: BMI 27.4
--- NOTE | 2017-02-18 05:34 | PDOC ---
Attending Attestation - Resident Resident Name: Janna Bianchi - ED Attending Attestation I have performed the following: I have examined & evaluated the patient, The case was reviewed & discussed with the resident, I agree w/resident's findings & plan, Exceptions are as noted - Physicial Exam PE: 02/18/17 05:33 *Physical Exam General Appearance: Yes: Appropriately Dressed. No: Apparent Distress, Intoxicated HEENT: positive: EOMI, KAYE, Normal ENT Inspection, Normal Voice, TMs Normal, Pharynx Normal. negative: Pale Conjunctivae, Photophobia, Scleral Icterus (R), Scleral Icterus (L) Neck: positive: Trachea midline, Normal Thyroid, Supple. negative: Tender, Rigid, Carotid bruit, Stridor, Lymphadenopathy (R), Lymphadenopathy (L), Thyromegaly Respiratory/Chest: positive: Lungs Clear, Normal Breath Sounds. negative: Chest Tender, Respiratory Distress, Accessory Muscle Use, Labored Respiration, RES, Crackles, Rales, Rhonchi, Stridor, Wheezing, Dullness Cardiovascular: positive: Regular Rhythm, Regular Rate, S1, S2. negative: Edema , JVD, Murmur, Bradycardia, Tachycardia Vascular Pulses: Dorsalis-Pedis (R): 2+, Doralis-Pedis (L): 2+ Gastrointestinal/Abdominal: positive: Normal Bowel Sounds, Flat, Soft. negative : Tender, Organomegaly, Pulsatile Mass, Increased Bowel Sounds, Decreased BS, Distended, Guarding, Rebound, Hernia, Hepatomegaly, Spleenomegaly Lymphatic: negative: Adenopathy, Tenderness Musculoskeletal: positive: Normal Inspection. negative: CVA Tenderness, Decreased Range of Motion Extremity: positive: Normal Capillary Refill, Normal Inspection, Normal Range of Motion, Pelvis Stable. negative: Tender, Pedal Edema, Swelling, Erythema Integumentary: positive: Normal Color, Dry, Warm. 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 negative: EOM Palsy, Facial Droop, Sensory Deficit
[2017-02-18 06:08] LABS: BASOPHIL 0.6 % (0-2.0); EOSINOPHIL 4.1 % (0-4.5); MCH 26.7 pg (25.7-33.7); MCHC 33.9 g/dl (32.0-36.0); MEAN CELL VOLUME 78.7 fl (80-96); MEAN PLT VOLUME 6.7 fl (7.5-11.1); NEUTROPHILS 69.9 % (42.8-82.8); PLATELET COUNT 319 K/MM3 (134-434); RDW 14.5 % (11.6-15.6); WHITE BLOOD COUNT 9.3 K/mm3 (4.0-10.0)
[2017-02-18 06:46] LABS: ALK PHOS 98 U/L (45-117); ANION GAP 9 (8-16); BILIRUBIN,TOTAL 0.2 mg/dL (0.2-1.0); CALCIUM 8.5 mg/dL (8.5-10.1); CO2 27 mmol/L (21-32); CREATININE 0.6 mg/dL (0.55-1.02); GLUCOSE,RANDOM 99 mg/dL (74-106); SGOT/AST 25 U/L (15-37); SGPT/ALT 35 U/L (12-78); TOT PROT 7.3 g/dl (6.4-8.2)
[2017-02-18 07:33] LABS: URINE APPEARANCE CLEAR; URINE BILIRUBIN NEGATIVE (NEGATIVE); URINE BLOOD NEGATIVE (NEGATIVE); URINE COLOR COLORLESS; URINE GLUCOSE (UA) NEGATIVE (NEGATIVE); URINE KETONE NEGATIVE (NEGATIVE); URINE NITRITE NEGATIVE (NEGATIVE); URINE PROTEIN NEGATIVE (NEGATIVE); URINE UROBILINOGEN NEGATIVE mg/dL (0.2-1.0)
--- NOTE | 2017-02-18 07:37 | PDOC ---
*Physical Exam - Vital Signs Last Vital Signs Temp Pulse Resp BP Pulse Ox 98.8 F 110 H 20 143/101 100 02/18/17 05:18 02/18/17 05:18 02/18/17 05:18 02/18/17 05:18 02/18/17 05:18 ED Treatment Course - LABORATORY CBC & Chemistry Diagram: 02/18/17 05:58 02/18/17 05:58 - ADDITIONAL ORDERS Additional order review: Laboratory Results 02/18/17 02/18/17 06:26 05:58 Sodium 139 Potassium 4.5 Chloride 103 Carbon Dioxide 27 Anion Gap 9 BUN 11 Creatinine 0.6 Creat Clearance w eGFR > 60 Random Glucose 99 D Calcium 8.5 Magnesium 2.0 Total Bilirubin 0.2 D AST 25 D ALT 35 D Alkaline Phosphatase 98 Total Protein 7.3 Albumin 4.0 Serum , Qual Negative 02/18/17 05:58 RBC 4.42 MCV 78.7 L MCHC 33.9 RDW 14.5 MPV 6.7 L Neutrophils % 69.9 D Lymphocytes % 19.8 D Monocytes % 5.6 Eosinophils % 4.1 Basophils % 0.6 Medical Decision Making - Medical Decision Making 02/18/17 07:36 The patient was signed out to me by Dr. Bianchi, night team. The patient is a 41F with a PMH of anxiety who presents to the ED with complaints of weakness. Pending labs. Will recommend for the patient to f/u with PCP if/when discharged. 02/18/17 10:24 Labs significant for TSH of 4.75. All other labs WNL. Patient understands need to f/u with PCP for thyroid evaluation. Patient feels better and is ready for d/ c. I informed the patient that she should return to the ER if she experiences symptoms of chest pain, SOB, nausea, vomiting, uncontrollable diarrhea, or constipation. I also advised her to come to the ER if she experiences focal neurologic deficits. *DC/Admit/Observation/Transfer Diagnosis at time of Disposition: Weakness - Discharge Dispostion Disposition: HOME Condition at time of disposition: Stable Admit: No - Referrals Referrals: Ede Danielle [Primary Care Provider] - - Patient Instructions Printed Discharge Instructions: Hypothyroidism, DI for Hypothyroidism Additional Instructions: Please return to the ER if symptoms persist, worsen, or new symptoms arise. Please follow up with your primary care physician in 2-3 days. Please return if you have any chest pain, shortness of breath, weakness/numbness /tingling in one or more parts of your body, or uncontrollable pain. - Post Discharge Activity
[2017-02-18 09:41] VITALS: BP 96/66; PULSE 86; TEMP 98.6
--- NOTE | 2017-02-18 10:03 | EKG ---
Test Reason : Blood Pressure : / mmHG Vent. Rate : 103 BPM Atrial Rate : 103 BPM P-R Int : 140 ms QRS Dur : 076 ms QT Int : 320 ms P-R-T Axes : 048 018 038 degrees QTc Int : 419 ms SINUS TACHYCARDIA SEPTAL INFARCT (CITED ON OR BEFORE 10-APR-2010) ABNORMAL ECG WHEN COMPARED WITH ECG OF 09-FEB-2017 00:56, VENT. RATE HAS INCREASED BY 40 BPM Confirmed by BASIA FLEMING MD ([id number]) on 02/18/2017 10:02:39 AM Referred By: Confirmed By:BASIA FLEMING MD
[2017-02-18 16:53] LABS: URINE LEUK ESTERASE 1+ (NEGATIVE)
[2017-02-18 18:06] LABS: URINE BACTERIA FEW /hpf (NEGATIVE); URINE RBC 0-2 /hpf (0-3)
== END 2017-02-18 10:41 | disposition home or self-care (01) ==
LOC: JER 04:38
DX: R53.1 Weakness (principal); F41.9 Anxiety disorder, unspecified; F17.210 Nicotine dependence, cigarettes, uncomplicated
CPT/HCPCS: 36415; 80053; 81003; 81015; 83735; 84443; 84703; 85025; 93005; 93010; 99285-25

== ENCOUNTER 2017-03-31 00:24 | Emergency (ER) | payer OTHER ==
[2017-03-31 00:47] VITALS: BP 151/95; PULSE 84; TEMP 98.2; BMI 28.2
[2017-03-31] MEDS ORDERED: diazePAM 5 MG TABLET PO ONE (02:18)
[2017-03-31] MEDS ORDERED: KETOROLAC TROMETHAMINE 60 MG/2 ML VIAL IM ONE (02:18)
[2017-03-31] MEDS ORDERED: KETOROLAC TROMETHAMINE 60 MG/2 ML VIAL ONE (02:23)
[2017-03-31] MEDS ORDERED: diazePAM 5 MG TABLET ONE (02:23)
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
== END 2017-03-31 03:49 | disposition home or self-care (01) ==
LOC: JER 00:24
PROC: 3E0233Z Introduction of Anti-inflammatory into Muscle, Percutaneous Approach (ICD-10-PCS; principal; 2017-03-31)
DX: M62.838 Other muscle spasm (principal)
CPT/HCPCS: 84703; 99282-25

== ENCOUNTER 2017-04-26 20:54 | Emergency (ER) | payer OTHER ==
--- NOTE | 2017-04-26 21:10 | PDOC ---
Rapid Medical Evaluation Time Seen by Provider: 04/26/17 21:06 Medical Evaluation: Allergies Allergy/AdvReac Type Severity Reaction Status Date / Time No Known Allergies Allergy Verified 03/31/17 00:43 04/26/17 21:06 I have performed a brief in-person evaluation of this patient. The patient presents with a chief complaint of: Saw minimal blood in her saliva once today. May also have body aches. No cough, sob, cp or fever. Smoker, no pmhx Pertinent physical exam findings:Stable w/ unremarkable exam I have ordered the following: nothing The patient will proceed to the ED for further evaluation.
[2017-04-26 21:11] VITALS: BP 168/81; PULSE 80; TEMP 98.5; BMI 28.4
--- NOTE | 2017-04-26 21:43 | PDOC ---
History of Present Illness - General Chief Complaint: Pain Stated Complaint: ABDOMINAL PAIN Time Seen by Provider: 04/26/17 21:06 History Source: Patient Exam Limitations: No Limitations - History of Present Illness Initial Comments: 04/26/17 21:39 This is a 41-year-old female with past medical history of hemorrhoids who presents to emergency department with 1 episode of blood-streaked saliva and one episode of blood streaked stool. Patient states that she does have a hemorrhoid is currently feeling minor pain at her rectum. She reports having of forcibly move her bowels earlier today. Patient states she has been using suppositories to help her move her bowels for the past 2 weeks. She denies any fevers, chills, cough, shortness of breath, chest pain, abdominal pain, nausea, vomiting. Past History - Past Medical History Allergies/Adverse Reactions: Allergies Allergy/AdvReac Type Severity Reaction Status Date / Time No Known Allergies Allergy Verified 03/31/17 00:43 Home Medications: Ambulatory Orders Cyclobenzaprine HCl [Flexeril -] 10 mg PO HS #7 tablet 03/31/17 Anemia: No Asthma: No Cancer: No Cardiac Disorders: No CVA: No COPD: No DVT: No Dementia: No Diabetes: No Dialysis: No GI Disorders: No Disorders: No HTN: No Hypercholesterolemia: No Kidney Stones: No Liver Disease: No Psychiatric Problems: Yes (Anxiety) Seizures: No Thyroid Disease: Yes Lung CA: No - Immunization History Immunization Up to Date: (2011) - Suicide/Smoking/Psychosocial Hx Smoking Status: Yes Smoking History: Current every day smoker Have you smoked in the past 12 months: Yes Number of Cigarettes Smoked Daily: 5 Information on smoking cessation initiated: No 'Breaking Loose' booklet given: 07/01/16 Hx Alcohol Use: No Drug/Substance Use Hx: No Substance Use Type: None Review of Systems - Review of Systems Able to Perform ROS?: Yes Is the patient limited Armenian proficient: No Constitutional: No: Symptoms Reported HEENTM: Yes: See HPI Respiratory: No: Symptoms reported Cardiac (ROS): No: Symptoms Reported ABD/GI: Yes: See HPI : No: Symptoms Reported Musculoskeletal: No: Symptoms Reported Integumentary: No: Symptoms Reported Neurological: No: Symptoms reported Endocrine: No: Symptoms Reported Hematologic/Lymphatic: No: Symptoms Reported *Physical Exam - Vital Signs Last Vital Signs Temp Pulse Resp BP Pulse Ox 98.5 F 80 17 168/81 100 04/26/17 21:08 04/26/17 21:08 04/26/17 21:08 04/26/17 21:08 04/26/17 21:08 - Physical Exam General Appearance: Yes: Appropriately Dressed. No: Apparent Distress HEENT: positive: Normal ENT Inspection Neck: positive: Trachea midline Respiratory/Chest: positive: Lungs Clear, Decreased Breath Sounds (left base) Cardiovascular: positive: Regular Rhythm, Regular Rate Gastrointestinal/Abdominal: positive: Normal Bowel Sounds, Soft. negative: Tender Rectal Exam: positive: hemorrhoids (external) Musculoskeletal: positive: Normal Inspection. 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 Patient states that she does have a hemorrhoid is currently feeling minor pain at her rectum. She reports having of forcibly move her bowels earlier today. Patient states she has been using suppositories to help her move her bowels for the past 2 weeks. She denies any fevers, chills, cough, shortness of breath, chest pain, abdominal pain, nausea, vomiting. Oropharynx within normal limits. No stridor. No cervical lymphadenopathy. Lungs sounds diminished on the left base. Speaking full sentences. Regular rate and rhythm. S1 and S2 present. No murmur, rub or gallop noted. Abdomen soft nontender nondistended. External hemorrhoid noted on rectal exam. Diagnosis hemorrhoid and dehydration I'll perform a chest x-ray to rule out pneumonia or tuberculosis. Patient has been instructed to stop using suppositories and to increase her by mouth water intake to help her move her bowels. Patient was also encouraged to increase her activity level to help move her bowels. Patient verbalized understanding of teaching and now understands that use of suppositories and/or laxatives can decrease her ability to move her bowels naturally. *DC/Admit/Observation/Transfer Diagnosis at time of Disposition: Hemorrhoids Qualifiers: Hemorrhoid type: unspecified Qualified Code(s): K64.9 - Unspecified hemorrhoids - Discharge Dispostion Disposition: HOME Condition at time of disposition: Stable Admit: No - Referrals Referrals: Ede Danielle [Primary Care Provider] - - Patient Instructions Additional Instructions: Use Preparation H as directed by manufacturers instructions. Witch francis medicated pads can be applied severe hemorrhoids to improve pain. Drink plenty of fluids. Stop using suppositories and laxatives to help move her bowels. Return to emergency department for worsening bleeding, dizziness, chest pain, shortness of breath or any other concerns. Thank you very much for choosing us to provide your emergent healthcare needs. - Post Discharge Activity
== END 2017-04-26 22:22 | disposition home or self-care (01) ==
LOC: JERFT 20:54
DX: K64.9 Unspecified hemorrhoids (principal)
CPT/HCPCS: 71046-TC; 99281-25

== ENCOUNTER 2017-05-28 22:48 | Emergency (ER) | payer OTHER ==
[2017-05-28 23:17] VITALS: BP 150/84; PULSE 81; TEMP 98.8; BMI 29.0
--- NOTE | 2017-05-29 00:34 | PDOC ---
History of Present Illness - General Chief Complaint: Lethargy Stated Complaint: FATIGUE Time Seen by Provider: 05/29/17 00:33 History Source: Patient - History of Present Illness Initial Comments: 05/29/17 00:45 Patient is a 41 y.o. female with no reported PMH who presents to the ED today c/ o generalized weakness and lightheadedness of 3 days. Patient states she is able to complete her ADL's however she is often tired. Patient notes some initial shortness of breath that has since resolved as well as some nausea. Patient has been tolerating PO intake and notes increased appetite and weight gain over the last 3 months. Patient's LMP was earlier this month and she is unsure if she is . Patient also notes her son currently has the flu. Patient denies any chest pain, abdominal cramping, constipation/diarrhea. NKDA Surgical: disectomy, abdominalplasty Social: (+) cigarettes 5-6 daily, denies alcohol, denies marijuana/cocaine/ heroin Past History - Past Medical History Allergies/Adverse Reactions: Allergies Allergy/AdvReac Type Severity Reaction Status Date / Time No Known Allergies Allergy Verified 05/28/17 23:17 Home Medications: Ambulatory Orders Cyclobenzaprine HCl [Flexeril -] 10 mg PO HS #7 tablet 03/31/17 Anemia: No Asthma: No Cancer: No Cardiac Disorders: No CVA: No COPD: No DVT: No Dementia: No Diabetes: No Dialysis: No GI Disorders: No Disorders: No HTN: No Hypercholesterolemia: No Kidney Stones: No Liver Disease: No Psychiatric Problems: Yes (Anxiety) Seizures: No Thyroid Disease: Yes Lung CA: No - Immunization History Immunization Up to Date: (2011) - Suicide/Smoking/Psychosocial Hx Smoking Status: Yes Smoking History: Former smoker Have you smoked in the past 12 months: No Number of Cigarettes Smoked Daily: 5 If you are a former smoker, when did you quit?: 2017 Information on smoking cessation initiated: Yes 'Breaking Loose' booklet given: 05/29/17 Hx Alcohol Use: No Drug/Substance Use Hx: No Substance Use Type: None Review of Systems - Review of Systems Constitutional: No: Chills, Fever HEENTM: No: Recent change in vision Respiratory: No: Shortness of Breath Cardiac (ROS): Yes: Lightheadedness. No: Chest Pain, Palpitations ABD/GI: No: Constipated, Diarrhea, Nausea, Vomiting : No: Burning, Dysuria *Physical Exam - Vital Signs Last Vital Signs Temp Pulse Resp BP Pulse Ox 98.8 F 81 16 150/84 100 05/28/17 23:10 05/28/17 23:10 05/28/17 23:10 05/28/17 23:10 05/28/17 23:10 - Physical Exam General Appearance: Yes: Nourished, Appropriately Dressed HEENT: positive: EOMI, KAYE. negative: Muffled/Hoarse voice, Pharyngeal Erythema, Tonsillar Exudate, Tonsillar Erythema, Nasal Congestion Neck: positive: Trachea midline, Supple Respiratory/Chest: positive: Lungs Clear Cardiovascular: positive: S1, S2 Gastrointestinal/Abdominal: positive: Normal Bowel Sounds, Soft. negative: Distended, Guarding, Hernia, Mass Integumentary: positive: Dry, Warm ED Treatment Course - LABORATORY CBC & Chemistry Diagram: 05/29/17 01:30 05/29/17 01:30 Medical Decision Making - Medical Decision Making 05/29/17 01:09 Patient is a 41 y.o. female who presents with weakness and lightheadedness. As per EMR patient has a h/o of multiple visits for general medical complaints and was noted to have a TSH of 4.75 in 01/2017 for which patient states she did not follow-up with her PMD. Differential diagnosis includes hypothyroidism vs. anemia. Will also obtain urine as well as Influenza. Reasess. 05/29/17 04:45 Influenza negative. TSH wnL. Patient symptomatically improved with IV NS and NSAIDS. Will discharge with return precautions and instruction to follow-up with PCP. *DC/Admit/Observation/Transfer Diagnosis at time of Disposition: Lightheaded - Discharge Dispostion Disposition: HOME Condition at time of disposition: Good Admit: No - Referrals Referrals: Ede Danielle [Primary Care Provider] - - Patient Instructions Printed Discharge Instructions: DI for Anxiety -- Adult Additional Instructions: Please make an appointment with your primary care doctor for evaluation of your general medical complaints. Return to the Emergency Department for any new/ worsening/concerning symptoms. - Post Discharge Activity
[2017-05-29] MEDS ORDERED: SODIUM CHLORIDE 0.9% 1000 ML INFUS.BAG IV ONE (01:03)
[2017-05-29 01:35] LABS: BASO % 0.9 % (0-2.0); EOS % 4.3 % (0-4.5); HEMATOCRIT 33.6 % (32.4-45.2); LYMPH % 23.9 % (8-40); MCH 26.2 pg (25.7-33.7); MCHC 32.7 g/dl (32.0-36.0); MONO % 5.9 % (3.8-10.2); PLATELET COUNT 319 K/MM3 (134-434); RDW 13.9 % (11.6-15.6)
[2017-05-29 02:15] LABS: ALBUMIN 3.9 g/dl (3.4-5.0); ALK PHOS 96 U/L (45-117); ANION GAP 7 (8-16); BILIRUBIN,TOTAL 0.4 mg/dL (0.2-1.0); BLOOD UREA NITROGEN 9 mg/dL (7-18); CALCIUM 8.4 mg/dL (8.5-10.1); CHLORIDE 103 mmol/L (98-107); CO2 29 mmol/L (21-32); CREATININE 0.7 mg/dL (0.55-1.02); GLUCOSE,RANDOM 97 mg/dL (74-106); POTASSIUM 3.9 mmol/L (3.5-5.1); SGOT/AST 19 U/L (15-37); SGPT/ALT 28 U/L (12-78); SODIUM 139 mmol/L (136-145); TOT PROT 7.5 g/dl (6.4-8.2)
--- NOTE | 2017-05-29 04:41 | PDOC ---
Attending Attestation - Resident Resident Name: Janna Bianchi - ED Attending Attestation I have performed the following: I have examined & evaluated the patient, The case was reviewed & discussed with the resident, I agree w/resident's findings & plan - HPI HPI: 05/29/17 04:39 Pt comed to the ER with lethargy. SHe has a runny nose and URI and flu like symptoms and minimal spium with blood. - Physicial Exam PE: 05/29/17 04:40 Agree with resident exam. 05/29/17 04:50 Pt has clear lungs; no sinus tenderness; afebrile, no cough, no abd pain , no muscle aches. She is feeling better after treatment in the ER. - Medical Decision Making 05/29/17 04:40 Labs normal; Influenza negative. Pt likely has a viral illness 05/29/17 04:51 Follow with PMD
== END 2017-05-29 05:05 | disposition home or self-care (01) ==
LOC: JER 22:48
DX: R42 Dizziness and giddiness (principal); E07.9 Disorder of thyroid, unspecified; F17.210 Nicotine dependence, cigarettes, uncomplicated; F41.9 Anxiety disorder, unspecified
CPT/HCPCS: 36415; 80053; 84443; 84703; 85025; 87804; 99281-25

== ENCOUNTER 2018-01-08 06:02 | Emergency (ER) | payer OTHER ==
[2018-01-08 06:19] VITALS: BP 159/106; PULSE 119; TEMP 100.8; BMI 29.0
== END 2018-01-08 06:19 | disposition left against medical advice (07) ==
LOC: JER 06:02
DX: Z53.21 Procedure and treatment not carried out due to patient leaving prior to being seen by health care provider (principal)
CPT/HCPCS: 99281-25

== ENCOUNTER 2021-01-20 22:39 | Emergency (ER) | payer OTHER ==
[2021-01-20 22:44] VITALS: BMI 22.6
[2021-01-21] MEDS ORDERED: SODIUM CHLORIDE 1,000 ML IV STA (00:14)
[2021-01-21] MEDS ORDERED: ONDANSETRON 4 MG/2 ML VIAL IVPUSH ONE (00:20)
[2021-01-21] MEDS ORDERED: ONDANSETRON 4 MG/2 ML VIAL ONE (00:23)
[2021-01-21 00:48] LABS: CHLORIDE 105 mmol/L (98-107); SODIUM 138 mmol/L (136-145)
[2021-01-21 00:49] LABS: BASO % 0.5 % (0-2.0); EOS % 0.3 % (0-4.5); HEMATOCRIT 34.2 % (32.4-45.2); HEMOGLOBIN 11.4 GM/dL (10.7-15.3); LYMPH % 13.1 % (8-40); MCH 25.7 pg (25.7-33.7); MCHC 33.3 g/dl (32.0-36.0); MEAN PLT VOLUME 7.5 fl (7.5-11.1); MONO % 5.9 % (3.8-10.2); NEUT % 80.2 % (42.8-82.8); PLATELET COUNT 449 10^3/uL (134-434); RBC 4.44 M/mm3 (3.60-5.2); RDW 17.3 % (11.6-15.6); WHITE BLOOD COUNT 12.3 K/mm3 (4.0-10.0)
[2021-01-21 00:50] LABS: EPI CELLS 20 /uL (0-25.1); HYALINE CASTS 4 /uL (0-3.1); PH,URINE 6.5 (5.0-8.0); URINE APPEARANCE CLOUDY; URINE BACTERIA 38 /uL (0-1359); URINE BILIRUBIN NEGATIVE (NEGATIVE); URINE COLOR DK YELLOW; URINE GLUCOSE (UA) NEGATIVE (NEGATIVE); URINE KETONE 1+ (NEGATIVE); URINE LEUK ESTERASE NEGATIVE (NEGATIVE); URINE NITRITE NEGATIVE (NEGATIVE); URINE PROTEIN 1+ (NEGATIVE); URINE RBC 27 /uL (0-23.9); URINE WBC 6 /uL (0-25.8)
[2021-01-21 00:51] LABS: CALCIUM 8.7 mg/dL (8.5-10.1)
[2021-01-21 00:52] LABS: ALBUMIN 3.5 g/dl (3.4-5.0); ANION GAP 7 MMOL/L (8-16); BLOOD UREA NITROGEN 13.1 mg/dL (7-18); CO2 25 mmol/L (21-32); GLUCOSE,RANDOM 96 mg/dL (74-106); LIPASE 65 U/L (73-393); MAGNESIUM 2.3 mg/dL (1.8-2.4)
[2021-01-21 00:55] LABS: CREATININE 0.6 mg/dL (0.55-1.3); SGOT/AST 38 U/L (15-37); SGPT/ALT 24 U/L (13-61)
[2021-01-21 00:56] LABS: BILIRUBIN,TOTAL 0.6 mg/dL (0.2-1); TOT PROT 7.6 g/dl (6.4-8.2)
[2021-01-21 00:57] LABS: ALK PHOS 97 U/L (45-117)
[2021-01-21 05:39] VITALS: BP 131/74; PULSE 75; TEMP 99
== END 2021-01-21 05:43 | disposition home or self-care (01) ==
LOC: JER 22:39
PROC: 3E033GC Introduction of Other Therapeutic Substance into Peripheral Vein, Percutaneous Approach (ICD-10-PCS; principal; 2021-01-20)
DX: R11.2 Nausea with vomiting, unspecified (principal); R10.84 Generalized abdominal pain
CPT/HCPCS: 36415; 80053; 81003; 82550; 83690; 83735; 84484; 84703; 85025; 87086; 93005; 93010; 96374; 99285-25; C9803; U0003; U0005

== ENCOUNTER 2021-10-15 23:26 | Emergency (ER) | payer OTHER ==
[2021-10-16] VITALS: BP 150/89; PULSE 72; TEMP 98.4; BMI 28.3
[2021-10-16] MEDS ORDERED: ACETAMINOPHEN 1000 MG/100 ML BAG IVPB ONE (00:17)
[2021-10-16] MEDS ORDERED: SODIUM CHLORIDE 1,000 ML IV STA (00:17)
[2021-10-16 00:43] LABS: EOS % 3.3 % (0-4.5); HEMATOCRIT 31.2 % (32.4-45.2); HEMOGLOBIN 10.3 GM/dL (10.7-15.3); LYMPH % 23.5 % (8-40); MCH 25.3 pg (25.7-33.7); MCHC 33.1 g/dl (32.0-36.0); MEAN CELL VOLUME 76.6 fl (80-96); MEAN PLT VOLUME 7.1 fl (7.5-11.1); MONO % 7.2 % (3.8-10.2); PLATELET COUNT 354 10^3/uL (134-434); RBC 4.08 M/mm3 (3.60-5.2); RDW 17.6 % (11.6-15.6); WHITE BLOOD COUNT 9.2 K/mm3 (4.0-10.0)
[2021-10-16 00:45] LABS: INR 1.04 (0.83-1.09)
[2021-10-16 00:48] LABS: ACTIVATED PTT 31.6 SECONDS (25.2-36.5)
[2021-10-16 01:02] LABS: CALCIUM 8.7 mg/dL (8.5-10.1)
[2021-10-16 01:03] LABS: ALBUMIN 4.1 g/dl (3.4-5.0); BLOOD UREA NITROGEN 7.5 mg/dL (7-18)
[2021-10-16 01:07] LABS: CREATININE 0.7 mg/dL (0.55-1.3)
[2021-10-16 01:08] LABS: BILIRUBIN,TOTAL 0.2 mg/dL (0.2-1); TOT PROT 7.4 g/dl (6.4-8.2)
== END 2021-10-16 01:14 | disposition home or self-care (01) ==
LOC: JER 23:26
PROC: 3E033GC Introduction of Other Therapeutic Substance into Peripheral Vein, Percutaneous Approach (ICD-10-PCS; principal; 2021-10-15)
DX: N93.9 Abnormal uterine and vaginal bleeding, unspecified (principal)
CPT/HCPCS: 36415; 80053; 84703; 85025; 85610; 85730; 86850; 86900; 86901; 99284-25

== ENCOUNTER 2022-01-02 23:46 | Emergency (ER) | payer OTHER ==
[2022-01-02 23:51] VITALS: BP 150/92; PULSE 72; RESP 18; TEMP 97.9; BMI 28.3
[2022-01-03] MEDS ORDERED: ACETAMINOPHEN 1000 MG/100 ML BAG IVPB ONE (01:54)
[2022-01-03] MEDS ORDERED: ACETAMINOPHEN INJECTION 100 ML IVPB ONE (01:56)
[2022-01-03 02:55] LABS: BASO % 0.8 % (0-2.0); EOS % 2.4 % (0-4.5); HEMATOCRIT 34.6 % (32.4-45.2); HEMOGLOBIN 11.1 GM/dL (10.7-15.3); LYMPH % 26.1 % (8-40); MCH 24.4 pg (25.7-33.7); MCHC 32.2 g/dl (32.0-36.0); MEAN CELL VOLUME 75.6 fl (80-96); MEAN PLT VOLUME 7.7 fl (7.5-11.1); NEUT % 64.7 % (42.8-82.8); PLATELET COUNT 497 10^3/uL (134-434); RBC 4.57 M/mm3 (3.60-5.2); RDW 16.6 % (11.6-15.6); WHITE BLOOD COUNT 6.7 K/mm3 (4.0-10.0)
[2022-01-03 03:00] LABS: EPI CELLS 21 /uL (0-25.1); HYALINE CASTS 0 /uL (0-3.1); URINE APPEARANCE CLEAR; URINE BACTERIA 15 /uL (0-1359); URINE BILIRUBIN NEGATIVE (NEGATIVE); URINE COLOR YELLOW; URINE GLUCOSE (UA) NEGATIVE (NEGATIVE); URINE KETONE NEGATIVE (NEGATIVE); URINE LEUK ESTERASE 1+ (NEGATIVE); URINE NITRITE NEGATIVE (NEGATIVE); URINE PROTEIN NEGATIVE (NEGATIVE); URINE RBC 1 /uL (0-23.9); URINE UROBILINOGEN 0.2 mg/dL (0.2-1.0); URINE WBC 11 /uL (0-25.8)
[2022-01-03 03:15] LABS: CALCIUM 9.3 mg/dL (8.5-10.1)
[2022-01-03 03:16] LABS: ALBUMIN 4.4 g/dl (3.4-5.0); BLOOD UREA NITROGEN 14.6 mg/dL (7-18); MAGNESIUM 2.1 mg/dL (1.8-2.4)
[2022-01-03 03:19] LABS: CREATININE 0.8 mg/dL (0.55-1.3)
[2022-01-03 03:21] LABS: BILIRUBIN,TOTAL 0.3 mg/dL (0.2-1)
[2022-01-03] MEDS ORDERED: MAG HYDROX/AL HYDROX/SIMETH -MYLANTA- ORAL SUSPENSION PO ONE (04:01)
[2022-01-03] MEDS ORDERED: MAG HYDROX/AL HYDROX/SIMETH 30 ML UNIT-DOSE CUP ONE (05:33)
== END 2022-01-03 04:21 | disposition home or self-care (01) ==
LOC: JER 23:46
PROC: 3E0333Z Introduction of Anti-inflammatory into Peripheral Vein, Percutaneous Approach (ICD-10-PCS; principal; 2022-01-02)
DX: R00.2 Palpitations (principal)
CPT/HCPCS: 36415; 71045-TC-FY; 80053; 81003; 83735; 84439; 84443; 84484; 84703; 85025; 87077; 87086; 93005; 93010; 99285-25

== ENCOUNTER 2022-04-18 22:38 | Emergency (ER) | payer OTHER ==
[2022-04-18 23:14] VITALS: TEMP 97.7; BMI 28.3
[2022-04-19] MEDS ORDERED: IBUPROFEN 600 MG TABLET (FP) PO ONE ×2 (00:14→01:05)
[2022-04-19 01:38] LABS: BASO % 0.6 % (0-2.0); EOS % 5.3 % (0-4.5); HEMATOCRIT 35.1 % (32.4-45.2); HEMOGLOBIN 11.3 GM/dL (10.7-15.3); LYMPH % 28.5 % (8-40); MCH 25.2 pg (25.7-33.7); MCHC 32.3 g/dl (32.0-36.0); MEAN CELL VOLUME 77.9 fl (80-96); MEAN PLT VOLUME 7.1 fl (7.5-11.1); MONO % 7.8 % (3.8-10.2); NEUT % 57.8 % (42.8-82.8); PLATELET COUNT 306 10^3/uL (134-434); RDW 14.1 % (11.6-15.6); WHITE BLOOD COUNT 6.7 K/mm3 (4.0-10.0)
[2022-04-19 01:41] LABS: EPI CELLS 3 /uL (0-25.1); HYALINE CASTS 0 /uL (0-3.1); PH,URINE 7.5 (5.0-8.0); URINE APPEARANCE CLEAR; URINE BACTERIA 28 /uL (0-1359); URINE BILIRUBIN NEGATIVE (NEGATIVE); URINE COLOR YELLOW; URINE GLUCOSE (UA) NEGATIVE (NEGATIVE); URINE KETONE NEGATIVE (NEGATIVE); URINE LEUK ESTERASE TRACE (NEGATIVE); URINE NITRITE NEGATIVE (NEGATIVE); URINE PROTEIN NEGATIVE (NEGATIVE); URINE RBC 5 /uL (0-23.9); URINE UROBILINOGEN 0.2 mg/dL (0.2-1.0); URINE WBC 5 /uL (0-25.8)
[2022-04-19 01:57] LABS: ALBUMIN 3.7 g/dl (3.4-5.0); CALCIUM 9.1 mg/dL (8.5-10.1)
[2022-04-19 01:58] LABS: BLOOD UREA NITROGEN 12.6 mg/dL (7-18)
[2022-04-19 02:01] LABS: CREATININE 0.5 mg/dL (0.55-1.3)
[2022-04-19 02:02] LABS: BILIRUBIN,TOTAL 0.3 mg/dL (0.2-1); TOT PROT 7.1 g/dl (6.4-8.2)
[2022-04-19] MEDS ORDERED: LACTATED RINGERS SOLUTION 1000 ML INFUS.BAG IV ONE (02:12)
[2022-04-19 04:17] VITALS: BP 148/62; PULSE 72; RESP 19
[2022-04-19] MEDS ORDERED: NITROFURANTOIN MACROCRYSTAL 50 MG CAPSULE (FP) PO ONE (04:30)
== END 2022-04-19 05:47 | disposition home or self-care (01) ==
LOC: JER 22:38
DX: R06.02 Shortness of breath (principal)
CPT/HCPCS: 0241U-QW; 36415; 76641-TC-LT; 80053; 81003; 85025; 87077; 87086; 93005; 93010; 99285-25

== ENCOUNTER 2022-07-31 18:03 | Emergency (ER) | payer OTHER ==
[2022-07-31 18:22] VITALS: BP 148/78; PULSE 70; RESP 18; TEMP 98.2; BMI 29.1
[2022-07-31] MEDS ORDERED: ACETAMINOPHEN 1000 MG/100 ML BAG IVPB ONE (19:00)
[2022-07-31] MEDS ORDERED: ACETAMINOPHEN INJECTION 100 ML IVPB ONE (19:24)
[2022-07-31 20:58] LABS: PH,URINE 6.5 (5.0-8.0); URINE APPEARANCE CLEAR; URINE BILIRUBIN NEGATIVE (NEGATIVE); URINE COLOR YELLOW; URINE GLUCOSE (UA) NEGATIVE (NEGATIVE); URINE KETONE NEGATIVE (NEGATIVE); URINE LEUK ESTERASE NEGATIVE (NEGATIVE); URINE NITRITE NEGATIVE (NEGATIVE); URINE PROTEIN NEGATIVE (NEGATIVE); URINE UROBILINOGEN 0.2 mg/dL (0.2-1.0)
[2022-07-31 20:59] LABS: BASO % 0.6 % (0-2.0); EOS % 3.1 % (0-4.5); HEMATOCRIT 34.7 % (32.4-45.2); HEMOGLOBIN 11.7 GM/dL (10.7-15.3); LYMPH % 23.2 % (8-40); MCH 25.8 pg (25.7-33.7); MCHC 33.7 g/dl (32.0-36.0); MEAN CELL VOLUME 76.6 fl (80-96); MEAN PLT VOLUME 7.1 fl (7.5-11.1); MONO % 6.5 % (3.8-10.2); NEUT % 66.6 % (42.8-82.8); PLATELET COUNT 311 10^3/uL (134-434); RBC 4.53 M/mm3 (3.60-5.2); RDW 14.6 % (11.6-15.6); WHITE BLOOD COUNT 7.9 K/mm3 (4.0-10.0)
[2022-07-31 21:08] LABS: CALCIUM 8.9 mg/dL (8.5-10.1)
[2022-07-31 21:09] LABS: ALBUMIN 3.9 g/dl (3.4-5.0); BLOOD UREA NITROGEN 13.5 mg/dL (7-18)
[2022-07-31 21:12] LABS: CREATININE 0.7 mg/dL (0.55-1.3)
[2022-07-31 21:14] LABS: BILIRUBIN,TOTAL 0.3 mg/dL (0.2-1); TOT PROT 7.6 g/dl (6.4-8.2)
== END 2022-07-31 22:10 | disposition home or self-care (01) ==
LOC: JER 18:03
PROC: 3E033NZ Introduction of Analgesics, Hypnotics, Sedatives into Peripheral Vein, Percutaneous Approach (ICD-10-PCS; principal; 2022-07-31)
DX: R10.32 Left lower quadrant pain (principal); R30.0 Dysuria; R35.0 Frequency of micturition; Z20.822 Contact with and (suspected) exposure to COVID-19
CPT/HCPCS: 0241U-QW; 36415; 74177-TC; 80053; 81003; 84703; 85025; 87086; 99285-25